=== PATIENT | male | born 1935 | race African-American/Black ===

== ENCOUNTER 2019-08-05 01:39 | Inpatient (IN) ==
[2019-08-05] MEDS ORDERED: FUROSEMIDE 100 MG/10 ML VIAL IV STA (02:06)
[2019-08-05] MEDS ORDERED: ALBUTEROL/IPRATROPIUM 3 ML NEB RESP TX STA (02:06)
[2019-08-05 02:35] LABS: Basophils # 0.1 10*3/uL (0.0-0.2); Basophils % 1.1 % (0.0-0.8); Eosinophils # 0.2 10*3/uL (0.0-0.87); Eosinophils % 2.2 % (0.00-10.9); Hematocrit 36.4 VOL% (42.0-52.0); Hemoglobin 11.9 GM/DL (14.0-18.0); Immature Granulocytes % 0.1 %; Immature Granulocytes Absolute 0.01 #; Lymphocytes # 1.6 10*3/uL (1.4-4.0); Lymphocytes % 21.3 % (21.2-54.2); Mean Corpuscular HGB Conc 32.7 GM/DL (32-36); Mean Corpuscular Volume 94.1 FL (87-102); Mean Platelet Volume 10.6 FL (9.6-12.0); Neutrophils % 68.3 % (38.7-73.9); Platelet Count 232 T/CUMM (130-400); Red Blood Count 3.87 MC/CUMM (3.8-5.5); Red Cell Distribution Width 13.2 % (9.3-17.3); White Blood Count 7.4 T/CUMM (4-12)
[2019-08-05 02:45] LABS: INR 1.1; PT Patient Result 11.6 SECS (9.6-12.2); Partial Thromboplastin Time 33.1 SECS (20.8-36.0)
[2019-08-05 03:02] LABS: Albumin 3.3 G/DL (3.4-5.0); Bilirubin,Total 0.5 MG/DL (0.2-1.0); Calcium 8.8 MG/DL (8.5-10.1); Osmolality,Calculated 295.8 MOS/KG (273-304); Total Protein 7.2 G/DL (6.4-8.3)
[2019-08-05] MEDS ORDERED: ONDANSETRON 4 MG/2 ML VIAL IV PRN (03:33)
[2019-08-05] MEDS ORDERED: hydrALAZINE 20 MG/1 ML VIAL ONE (03:55)
[2019-08-05] MEDS ORDERED: hydrALAZINE 20 MG/1 ML VIAL IV STA (04:02)
[2019-08-05 06:01] LABS: Basophils # 0.1 10*3/uL (0.0-0.2); Basophils % 1.1 % (0.0-0.8); Eosinophils # 0.1 10*3/uL (0.0-0.87); Eosinophils % 1.3 % (0.00-10.9); Hematocrit 38.2 VOL% (42.0-52.0); Hemoglobin 12.5 GM/DL (14.0-18.0); Immature Granulocytes % 0.3 %; Immature Granulocytes Absolute 0.02 #; Lymphocytes # 1.7 10*3/uL (1.4-4.0); Lymphocytes % 22.5 % (21.2-54.2); Mean Corpuscular HGB Conc 32.7 GM/DL (32-36); Mean Corpuscular Volume 92.5 FL (87-102); Mean Platelet Volume 10.8 FL (9.6-12.0); Monocytes % 7.9 % (1.7-12.7); Neutrophils % 66.9 % (38.7-73.9); Platelet Count 243 T/CUMM (130-400); Red Blood Count 4.13 MC/CUMM (3.8-5.5); Red Cell Distribution Width 13.2 % (9.3-17.3); White Blood Count 7.5 T/CUMM (4-12)
[2019-08-05] MEDS ORDERED: hydrALAZINE 20 MG/1 ML VIAL IV ONE (06:06)
[2019-08-05 06:32] LABS: Albumin 3.2 G/DL (3.4-5.0); Bilirubin,Total 0.8 MG/DL (0.2-1.0); Calcium 9.6 MG/DL (8.5-10.1); Osmolality,Calculated 290.3 MOS/KG (273-304); Total Protein 7.8 G/DL (6.4-8.3)
[2019-08-05] MEDS ORDERED: NITROGLYCERIN SL 0.4 MG TABLET SL PRN (08:58)
[2019-08-05] MEDS ORDERED: ALBUTEROL 2.5 MG/3 ML NEB RESP TX PRN (08:58)
[2019-08-05] MEDS ORDERED: hydrALAZINE 25 MG TABLET PO SCH (09:00)
[2019-08-05] MEDS: PARoxetine 20 MG TABLET PO SCH (09:38)
[2019-08-05] MEDS: ISOSORBIDE MONONITRATE 30 MG TABLET PO SCH (09:38)
[2019-08-05] MEDS: FUROSEMIDE 40 MG/4 ML VIAL IV SCH ×2 (09:39→16:33)
[2019-08-05] MEDS: TAMSULOSIN 0.4 MG CAPSULE PO SCH (09:39)
[2019-08-05] MEDS: APIXABAN 2.5 MG TABLET PO SCH ×2 (09:39→21:14)
[2019-08-05] MEDS: carvediloL 25 MG TABLET PO SCH ×2 (09:39→21:14)
[2019-08-05] MEDS: POTASSIUM CHLORIDE 10 MEQ TABLET PO SCH (09:39)
[2019-08-05] MEDS: DOCUSATE SODIUM 100 MG CAPSULE PO SCH ×2 (09:39→21:15)
[2019-08-05] MEDS: ALLOPURINOL 100 MG TABLET PO SCH (09:39)
[2019-08-05] MEDS: PANTOPRAZOLE 40 MG VIAL IV SCH (09:39)
[2019-08-05] MEDS: ASPIRIN EC 81 MG TABLET PO SCH (09:40)
[2019-08-05] MEDS: DORZOLAMIDE/TIMOLOL OPH SOLN 10 ML BOTTLE LEFT EYE SCH ×2 (09:40→21:15)
[2019-08-05] MEDS: ALBUTEROL/IPRATROPIUM 3 ML NEB RESP TX SCH ×2 (13:16→19:43)
[2019-08-05] MEDS: DONEPEZIL 10 MG TABLET PO SCH (21:14)
[2019-08-05] MEDS: hydrALAZINE 25 MG TABLET PO SCH (21:15)
[2019-08-06] MEDS: ALBUTEROL/IPRATROPIUM 3 ML NEB RESP TX SCH ×4 (00:20→19:51)
[2019-08-06 07:17] LABS: Calcium 8.5 MG/DL (8.5-10.1); Osmolality,Calculated 295.8 MOS/KG (273-304)
[2019-08-06] MEDS: carvediloL 25 MG TABLET PO SCH ×2 (07:59→21:40)
[2019-08-06] MEDS: TAMSULOSIN 0.4 MG CAPSULE PO SCH (07:59)
[2019-08-06] MEDS: hydrALAZINE 25 MG TABLET PO SCH (07:59)
[2019-08-06] MEDS: DOCUSATE SODIUM 100 MG CAPSULE PO SCH ×2 (08:00→21:40)
[2019-08-06] MEDS: PARoxetine 20 MG TABLET PO SCH (08:00)
[2019-08-06] MEDS: ASPIRIN EC 81 MG TABLET PO SCH (08:01)
[2019-08-06] MEDS: POTASSIUM CHLORIDE 10 MEQ TABLET PO SCH (08:01)
[2019-08-06] MEDS: ALLOPURINOL 100 MG TABLET PO SCH (08:02)
[2019-08-06] MEDS: ISOSORBIDE MONONITRATE 30 MG TABLET PO SCH (08:02)
[2019-08-06] MEDS: APIXABAN 2.5 MG TABLET PO SCH ×2 (08:02→21:40)
[2019-08-06] MEDS: FUROSEMIDE 40 MG/4 ML VIAL IV SCH ×2 (08:03→16:15)
[2019-08-06] MEDS: PANTOPRAZOLE 40 MG VIAL IV SCH (08:03)
[2019-08-06] MEDS: DORZOLAMIDE/TIMOLOL OPH SOLN 10 ML BOTTLE LEFT EYE SCH ×2 (08:03→21:43)
[2019-08-06] MEDS ORDERED: POTASSIUM CHLORIDE 20 MEQ TABLET PO ONE (08:12)
[2019-08-06 16:39] LABS: Amorphous Crystals,Urine Occasional /HPF (Few); Apearance,Urine CLEAR (Clear); Bacteria,Urine Occasional /HPF (Few); Bilirubin,Urine Negative (Negative); Blood, Urine Negative (Negative); Glucose,Urine (UA) Negative (Negative); Hyaline Casts,Urine 3 /LPF (0-3); Ketones,Urine Negative (Negative); Mucus,Urine Occasional /LPF (Occasional); Nitrite,Urine Negative (Negative); Protein,Urine 100 MG/DL; RBC,Urine 1 /HPF (0-4); Squamous Epithelial Cell,Urine Occasional /HPF (0-10); Urine Color Yellow (Yellow); Urine Specific Gravity 1.012 (1.001-1.035); Urine Urobilinogen < 2.0 EU/DL (0.2-1.0); WBC,Urine 2 /HPF (0-6)
[2019-08-06] MEDS: POTASSIUM CHLORIDE 20 MEQ TABLET PO SCH (21:39)
[2019-08-06] MEDS: DONEPEZIL 10 MG TABLET PO SCH (21:39)
[2019-08-07] MEDS: ALBUTEROL/IPRATROPIUM 3 ML NEB RESP TX SCH ×4 (00:37→20:30)
[2019-08-07 05:39] LABS: Basophils # 0.1 10*3/uL (0.0-0.2); Basophils % 1.3 % (0.0-0.8); Eosinophils # 0.2 10*3/uL (0.0-0.87); Eosinophils % 4.3 % (0.00-10.9); Hematocrit 32.6 VOL% (42.0-52.0); Hemoglobin 10.6 GM/DL (14.0-18.0); Immature Granulocytes % 0.4 %; Immature Granulocytes Absolute 0.02 #; Lymphocytes # 1.6 10*3/uL (1.4-4.0); Lymphocytes % 33.3 % (21.2-54.2); Mean Corpuscular HGB Conc 32.5 GM/DL (32-36); Mean Corpuscular Volume 93.4 FL (87-102); Mean Platelet Volume 11.4 FL (9.6-12.0); Monocytes % 11.6 % (1.7-12.7); Neutrophils % 49.1 % (38.7-73.9); Platelet Count 198 T/CUMM (130-400); Red Blood Count 3.49 MC/CUMM (3.8-5.5); Red Cell Distribution Width 13.3 % (9.3-17.3); White Blood Count 4.7 T/CUMM (4-12)
[2019-08-07 06:04] LABS: Calcium 8.8 MG/DL (8.5-10.1); Osmolality,Calculated 297.8 MOS/KG (273-304)
[2019-08-07] MEDS: ASPIRIN EC 81 MG TABLET PO SCH (09:18)
[2019-08-07] MEDS: FUROSEMIDE 40 MG/4 ML VIAL IV SCH ×2 (09:18→15:32)
[2019-08-07] MEDS: APIXABAN 2.5 MG TABLET PO SCH ×2 (09:19→21:18)
[2019-08-07] MEDS: POTASSIUM CHLORIDE 20 MEQ TABLET PO SCH ×2 (09:19→21:18)
[2019-08-07] MEDS: DOCUSATE SODIUM 100 MG CAPSULE PO SCH ×2 (09:19→21:18)
[2019-08-07] MEDS: ALLOPURINOL 100 MG TABLET PO SCH (09:19)
[2019-08-07] MEDS: PARoxetine 20 MG TABLET PO SCH (09:19)
[2019-08-07] MEDS: PANTOPRAZOLE 40 MG TABLET PO SCH (09:19)
[2019-08-07] MEDS: DORZOLAMIDE/TIMOLOL OPH SOLN 10 ML BOTTLE LEFT EYE SCH ×2 (09:19→21:19)
[2019-08-07] MEDS: ISOSORBIDE MONONITRATE 30 MG TABLET PO SCH (09:19)
[2019-08-07] MEDS: carvediloL 25 MG TABLET PO SCH ×2 (09:19→21:18)
[2019-08-07] MEDS: TAMSULOSIN 0.4 MG CAPSULE PO SCH (09:19)
[2019-08-07] MEDS: DONEPEZIL 10 MG TABLET PO SCH (21:17)
[2019-08-08] MEDS: ALBUTEROL/IPRATROPIUM 3 ML NEB RESP TX SCH ×4 (01:14→19:52)
[2019-08-08 05:07] LABS: Basophils # 0.1 10*3/uL (0.0-0.2); Basophils % 1.1 % (0.0-0.8); Eosinophils # 0.2 10*3/uL (0.0-0.87); Eosinophils % 3.6 % (0.00-10.9); Hematocrit 32.1 VOL% (42.0-52.0); Hemoglobin 10.5 GM/DL (14.0-18.0); Immature Granulocytes % 0.5 %; Immature Granulocytes Absolute 0.02 #; Lymphocytes # 1.5 10*3/uL (1.4-4.0); Lymphocytes % 32.7 % (21.2-54.2); Mean Corpuscular HGB Conc 32.7 GM/DL (32-36); Mean Corpuscular Volume 93.9 FL (87-102); Mean Platelet Volume 11.7 FL (9.6-12.0); Monocytes % 10.4 % (1.7-12.7); Neutrophils % 51.7 % (38.7-73.9); Platelet Count 206 T/CUMM (130-400); Red Blood Count 3.42 MC/CUMM (3.8-5.5); Red Cell Distribution Width 13.4 % (9.3-17.3); White Blood Count 4.4 T/CUMM (4-12)
[2019-08-08 05:25] LABS: Calcium 8.7 MG/DL (8.5-10.1); Osmolality,Calculated 299.8 MOS/KG (273-304)
[2019-08-08] MEDS: PANTOPRAZOLE 40 MG TABLET PO SCH (09:28)
[2019-08-08] MEDS: DORZOLAMIDE/TIMOLOL OPH SOLN 10 ML BOTTLE LEFT EYE SCH ×2 (09:28→20:46)
[2019-08-08] MEDS: PARoxetine 20 MG TABLET PO SCH (09:28)
[2019-08-08] MEDS: APIXABAN 2.5 MG TABLET PO SCH ×2 (09:28→20:45)
[2019-08-08] MEDS: carvediloL 25 MG TABLET PO SCH ×2 (09:29→20:57)
[2019-08-08] MEDS: ALLOPURINOL 100 MG TABLET PO SCH (09:29)
[2019-08-08] MEDS: DOCUSATE SODIUM 100 MG CAPSULE PO SCH ×2 (09:29→20:45)
[2019-08-08] MEDS: ASPIRIN EC 81 MG TABLET PO SCH (09:30)
[2019-08-08] MEDS: POTASSIUM CHLORIDE 20 MEQ TABLET PO SCH ×2 (09:30→20:45)
[2019-08-08] MEDS: ISOSORBIDE MONONITRATE 30 MG TABLET PO SCH (09:30)
[2019-08-08] MEDS: TAMSULOSIN 0.4 MG CAPSULE PO SCH (09:30)
[2019-08-08] MEDS: FUROSEMIDE 40 MG/4 ML VIAL IV SCH (10:52)
[2019-08-08] MEDS: FUROSEMIDE 40 MG TABLET PO SCH (15:58)
[2019-08-08] MEDS: DONEPEZIL 10 MG TABLET PO SCH (20:45)
[2019-08-09] MEDS: ALBUTEROL/IPRATROPIUM 3 ML NEB RESP TX SCH ×3 (01:10→13:25)
[2019-08-09 06:17] LABS: Osmolality,Calculated 293.4 MOS/KG (273-304)
[2019-08-09] MEDS: APIXABAN 2.5 MG TABLET PO SCH (09:05)
[2019-08-09] MEDS: TAMSULOSIN 0.4 MG CAPSULE PO SCH (09:05)
[2019-08-09] MEDS: ALLOPURINOL 100 MG TABLET PO SCH (09:05)
[2019-08-09] MEDS: ASPIRIN EC 81 MG TABLET PO SCH (09:05)
[2019-08-09] MEDS: PANTOPRAZOLE 40 MG TABLET PO SCH (09:06)
[2019-08-09] MEDS: PARoxetine 20 MG TABLET PO SCH (09:06)
[2019-08-09] MEDS: FUROSEMIDE 40 MG TABLET PO SCH ×2 (09:06→15:17)
[2019-08-09] MEDS: DOCUSATE SODIUM 100 MG CAPSULE PO SCH (09:06)
[2019-08-09] MEDS: ISOSORBIDE MONONITRATE 30 MG TABLET PO SCH (09:06)
[2019-08-09] MEDS: POTASSIUM CHLORIDE 20 MEQ TABLET PO SCH (09:07)
[2019-08-09] MEDS: carvediloL 25 MG TABLET PO SCH (09:07)
[2019-08-09] MEDS: DORZOLAMIDE/TIMOLOL OPH SOLN 10 ML BOTTLE LEFT EYE SCH (09:07)
[2019-08-09 15:33] VITALS: BP 122/70
== END 2019-08-09 18:31 | disposition home health service (06) | DRG 291 ==
LOC: EDBD → EDUNIT# → N.EDINP 01:39 → N.ED 01:39 → INTOOBSV 04:23 → OBSVTOIN 04:23 → N.EDINP 04:55 → N.TELEN 05:03
PROVIDERS: ADMIT Internal Medicine; ATTEND Internal Medicine

== ENCOUNTER 2020-05-16 03:46 | Inpatient (IN) ==
[2020-05-16 04:22] LABS: ABG Base Excess -1.1 MMOL/L (-2.5-2.5); ABG HCO3 22.6 MMOL/L (20-26); ABG Oxygen Saturation 93.9 % (95-100); ABG PCO2 34.2 MM HG (35-48); ABG PH 7.437 (7.35-7.45); ABG PO2 70.8 MM HG (80-95); ABG TCO2 23.6 MMOL/L (23-27); Allen Test Positive
[2020-05-16 04:26] LABS: Basophils # 0.1 10*3/uL (0.0-0.2); Basophils % 0.7 % (0.0-0.8); Eosinophils # 0.2 10*3/uL (0.0-0.87); Eosinophils % 2.6 % (0.00-10.9); Hemoglobin 11.3 GM/DL (14.0-18.0); Immature Granulocytes % 0.2 %; Immature Granulocytes Absolute 0.02 #; Lymphocytes % 11.6 % (21.2-54.2); Mean Corpuscular HGB Conc 32.3 GM/DL (32-36); Mean Corpuscular Volume 95.4 FL (87-102); Mean Platelet Volume 10.5 FL (9.6-12.0); Monocytes % 6.5 % (1.7-12.7); Neutrophils % 78.4 % (38.7-73.9); Platelet Count 223 T/CUMM (130-400); Red Blood Count 3.67 MC/CUMM (3.8-5.5); Red Cell Distribution Width 14.4 % (9.3-17.3); White Blood Count 8.8 T/CUMM (4-12)
[2020-05-16 04:47] LABS: Albumin 3.4 G/DL (3.4-5.0); Bilirubin,Total 0.6 MG/DL (0.2-1.0); Calcium 9.7 MG/DL (8.5-10.1); Osmolality,Calculated 291.1 MOS/KG (273-304); Total Protein 7.9 G/DL (6.4-8.3)
[2020-05-16] MEDS ORDERED: LEVOFLOXACIN INJ 500 MG in PREMIX 1 EACH IV STA (04:56)
[2020-05-16] MEDS ORDERED: hydrALAZINE 20 MG/1 ML VIAL IV STA ×2 (05:00→05:54)
[2020-05-16] MEDS ORDERED: ACETAMINOPHEN 325 MG TABLET PO PRN (05:12)
[2020-05-16] MEDS ORDERED: ONDANSETRON 4 MG/2 ML VIAL IV PRN (05:12)
[2020-05-16] MEDS ORDERED: DEXTROSE 50% 25 GM/50 ML VIAL IV PRN (07:29)
[2020-05-16] MEDS ORDERED: GLUCAGON 1 MG VIAL IM PRN (07:29)
[2020-05-16] MEDS ORDERED: cloNIDine 0.1 MG TABLET ONE (07:34)
[2020-05-16] MEDS ORDERED: INFLUENZA VIRUS VACCINE 0.5 ML SYRINGE IM ONE (09:02)
[2020-05-16] MEDS: INSULIN REGULAR 100 UNIT/ML SUBCUT SCH ×4 (10:46→21:22)
[2020-05-16] MEDS: PANTOPRAZOLE 40 MG TABLET PO SCH (10:57)
[2020-05-16] MEDS: FUROSEMIDE 40 MG/4 ML VIAL IV SCH ×2 (10:58→21:22)
[2020-05-16] MEDS ORDERED: NITROGLYCERIN SL 0.4 MG TABLET SL PRN (15:16)
[2020-05-16] MEDS: ISOSORBIDE MONONITRATE 30 MG TABLET PO SCH (16:55)
[2020-05-16] MEDS: TAMSULOSIN 0.4 MG CAPSULE PO SCH (16:55)
[2020-05-16] MEDS: carvediloL 25 MG TABLET PO SCH (21:22)
[2020-05-16] MEDS: APIXABAN 2.5 MG TABLET PO SCH (21:22)
[2020-05-16] MEDS: POTASSIUM CHLORIDE 20 MEQ TABLET PO SCH (21:22)
[2020-05-17 04:11] LABS: Basophils # 0.1 10*3/uL (0.0-0.2); Eosinophils # 0.2 10*3/uL (0.0-0.87); Eosinophils % 3.7 % (0.00-10.9); Hematocrit 29.7 VOL% (42.0-52.0); Hemoglobin 9.8 GM/DL (14.0-18.0); Immature Granulocytes % 0.2 %; Immature Granulocytes Absolute 0.01 #; Lymphocytes # 1.1 10*3/uL (1.4-4.0); Lymphocytes % 22.8 % (21.2-54.2); Mean Corpuscular Volume 93.7 FL (87-102); Mean Platelet Volume 10.7 FL (9.6-12.0); Monocytes % 9.7 % (1.7-12.7); Neutrophils % 62.6 % (38.7-73.9); Platelet Count 203 T/CUMM (130-400); Red Blood Count 3.17 MC/CUMM (3.8-5.5); Red Cell Distribution Width 14.5 % (9.3-17.3); White Blood Count 4.9 T/CUMM (4-12)
[2020-05-17 04:35] LABS: Calcium 8.9 MG/DL (8.5-10.1)
[2020-05-17] MEDS: LEVOFLOXACIN INJ 250 MG in PREMIX 1 EACH IV SCH (05:49)
[2020-05-17] MEDS: PARoxetine 20 MG TABLET PO SCH (10:44)
[2020-05-17] MEDS: POTASSIUM CHLORIDE 20 MEQ TABLET PO SCH ×2 (10:45→21:02)
[2020-05-17] MEDS: ISOSORBIDE MONONITRATE 30 MG TABLET PO SCH (10:45)
[2020-05-17] MEDS: TAMSULOSIN 0.4 MG CAPSULE PO SCH (10:46)
[2020-05-17] MEDS: FERROUS SULFATE 325 MG TABLET PO SCH (10:46)
[2020-05-17] MEDS: PANTOPRAZOLE 40 MG TABLET PO SCH (10:46)
[2020-05-17] MEDS: ASPIRIN EC 81 MG TABLET PO SCH (10:47)
[2020-05-17] MEDS: APIXABAN 2.5 MG TABLET PO SCH ×2 (10:47→21:03)
[2020-05-17] MEDS: allopurinoL 100 MG TABLET PO SCH (10:47)
[2020-05-17] MEDS: carvediloL 25 MG TABLET PO SCH ×2 (10:48→21:03)
[2020-05-17] MEDS: FUROSEMIDE 40 MG/4 ML VIAL IV SCH ×2 (10:48→21:03)
[2020-05-17] MEDS: INSULIN REGULAR 100 UNIT/ML SUBCUT SCH ×4 (10:53→21:03)
[2020-05-18 05:55] LABS: Basophils # 0.1 10*3/uL (0.0-0.2); Basophils % 1.8 % (0.0-0.8); Eosinophils # 0.2 10*3/uL (0.0-0.87); Eosinophils % 4.9 % (0.00-10.9); Hematocrit 31.5 VOL% (42.0-52.0); Hemoglobin 10.1 GM/DL (14.0-18.0); Immature Granulocytes % 0.2 %; Immature Granulocytes Absolute 0.01 #; Lymphocytes # 1.3 10*3/uL (1.4-4.0); Mean Corpuscular HGB Conc 32.1 GM/DL (32-36); Mean Corpuscular Volume 95.2 FL (87-102); Mean Platelet Volume 10.9 FL (9.6-12.0); Neutrophils % 57.1 % (38.7-73.9); Platelet Count 216 T/CUMM (130-400); Red Blood Count 3.31 MC/CUMM (3.8-5.5); Red Cell Distribution Width 14.3 % (9.3-17.3); White Blood Count 4.9 T/CUMM (4-12)
[2020-05-18 06:22] LABS: Calcium 9.7 MG/DL (8.5-10.1); Osmolality,Calculated 289.4 MOS/KG (273-304)
[2020-05-18] MEDS: LEVOFLOXACIN INJ 250 MG in PREMIX 1 EACH IV SCH (06:38)
[2020-05-18] MEDS: INSULIN REGULAR 100 UNIT/ML SUBCUT SCH ×4 (09:11→21:32)
[2020-05-18] MEDS: PANTOPRAZOLE 40 MG TABLET PO SCH (09:14)
[2020-05-18] MEDS: allopurinoL 100 MG TABLET PO SCH (09:15)
[2020-05-18] MEDS: carvediloL 25 MG TABLET PO SCH ×2 (09:15→21:30)
[2020-05-18] MEDS: ISOSORBIDE MONONITRATE 30 MG TABLET PO SCH (09:15)
[2020-05-18] MEDS: PARoxetine 20 MG TABLET PO SCH (09:15)
[2020-05-18] MEDS: POTASSIUM CHLORIDE 20 MEQ TABLET PO SCH ×2 (09:15→21:31)
[2020-05-18] MEDS: APIXABAN 2.5 MG TABLET PO SCH ×2 (09:15→21:30)
[2020-05-18] MEDS: TAMSULOSIN 0.4 MG CAPSULE PO SCH (09:15)
[2020-05-18] MEDS: FERROUS SULFATE 325 MG TABLET PO SCH (09:15)
[2020-05-18] MEDS: ASPIRIN EC 81 MG TABLET PO SCH (09:15)
[2020-05-18] MEDS: FUROSEMIDE 40 MG/4 ML VIAL IV SCH ×2 (09:20→21:31)
[2020-05-19] MEDS: LEVOFLOXACIN INJ 250 MG in PREMIX 1 EACH IV SCH (05:57)
[2020-05-19] MEDS: INSULIN REGULAR 100 UNIT/ML SUBCUT SCH ×2 (07:52→12:30)
[2020-05-19] MEDS ORDERED: MULTIVITAMIN (BEROCCA) TABLET PO SCH (09:00)
[2020-05-19] MEDS: FUROSEMIDE 40 MG/4 ML VIAL IV SCH (09:41)
[2020-05-19] MEDS: POTASSIUM CHLORIDE 20 MEQ TABLET PO SCH (09:42)
[2020-05-19] MEDS: ASPIRIN EC 81 MG TABLET PO SCH (09:42)
[2020-05-19] MEDS: carvediloL 25 MG TABLET PO SCH (09:42)
[2020-05-19] MEDS: TAMSULOSIN 0.4 MG CAPSULE PO SCH (09:42)
[2020-05-19] MEDS: PARoxetine 20 MG TABLET PO SCH (09:43)
[2020-05-19] MEDS: PANTOPRAZOLE 40 MG TABLET PO SCH (09:44)
[2020-05-19] MEDS: FERROUS SULFATE 325 MG TABLET PO SCH (09:45)
[2020-05-19] MEDS: APIXABAN 2.5 MG TABLET PO SCH (09:45)
[2020-05-19] MEDS: allopurinoL 100 MG TABLET PO SCH (09:45)
[2020-05-19] MEDS: ISOSORBIDE MONONITRATE 30 MG TABLET PO SCH (09:48)
[2020-05-19 13:02] VITALS: BP 134/76
[2020-05-19] MEDS ORDERED: FUROSEMIDE 40 MG TABLET PO SCH (16:00)
== END 2020-05-19 15:40 | disposition home health service (06) | DRG 291 ==
LOC: EDUNIT# → EDBD → N.ED 03:46 → N.EDINP 05:10 → N.TELES 06:38 → N.4E 05-18 16:30
PROVIDERS: ADMIT Internal Medicine; ATTEND Internal Medicine

== ENCOUNTER 2020-08-29 09:28 | Inpatient (IN) ==
[2020-08-29] MEDS ORDERED: hydrALAZINE 20 MG/1 ML VIAL IV STA (09:50)
[2020-08-29 10:08] LABS: Basophils # 0.1 10*3/uL (0.0-0.2); Basophils % 0.8 % (0.0-0.8); Eosinophils # 0.1 10*3/uL (0.0-0.87); Eosinophils % 0.9 % (0.00-10.9); Hematocrit 38.5 VOL% (42.0-52.0); Hemoglobin 12.4 GM/DL (14.0-18.0); Immature Granulocytes % 0.3 %; Immature Granulocytes Absolute 0.02 #; Lymphocytes # 0.8 10*3/uL (1.4-4.0); Lymphocytes % 13.1 % (21.2-54.2); Mean Corpuscular HGB Conc 32.2 GM/DL (32-36); Mean Corpuscular Volume 93.7 FL (87-102); Mean Platelet Volume 10.7 FL (9.6-12.0); Monocytes % 6.4 % (1.7-12.7); Neutrophils % 78.5 % (38.7-73.9); Platelet Count 198 T/CUMM (130-400); Red Blood Count 4.11 MC/CUMM (3.8-5.5); Red Cell Distribution Width 13.7 % (9.3-17.3); White Blood Count 6.4 T/CUMM (4-12)
[2020-08-29] MEDS ORDERED: FUROSEMIDE 100 MG/10 ML VIAL IV STA (10:23)
[2020-08-29 10:35] LABS: Albumin 3.6 G/DL (3.4-5.0); Bilirubin,Total 0.4 MG/DL (0.2-1.0); Calcium 9.5 MG/DL (8.5-10.1); Osmolality,Calculated 295.8 MOS/KG (273-304)
[2020-08-29] MEDS ORDERED: ACETAMINOPHEN 325 MG TABLET PO PRN (11:01)
[2020-08-29] MEDS ORDERED: ONDANSETRON 4 MG/2 ML VIAL IV PRN (11:01)
[2020-08-29] MEDS ORDERED: ALBUTEROL 2.5 MG/3 ML NEB RESP TX PRN (11:03)
[2020-08-29] MEDS: FUROSEMIDE 40 MG TABLET PO SCH (15:47)
[2020-08-29] MEDS: carvediloL 25 MG TABLET PO SCH (20:30)
[2020-08-29] MEDS: DOCUSATE SODIUM 100 MG CAPSULE PO SCH (20:30)
[2020-08-29] MEDS: APIXABAN 2.5 MG TABLET PO SCH (20:30)
[2020-08-30 06:40] LABS: Basophils # 0.1 10*3/uL (0.0-0.2); Basophils % 1.1 % (0.0-0.8); Eosinophils # 0.1 10*3/uL (0.0-0.87); Eosinophils % 2.7 % (0.00-10.9); Hematocrit 32.4 VOL% (42.0-52.0); Hemoglobin 10.5 GM/DL (14.0-18.0); Immature Granulocytes % 0.2 %; Immature Granulocytes Absolute 0.01 #; Lymphocytes # 1.2 10*3/uL (1.4-4.0); Lymphocytes % 27.6 % (21.2-54.2); Mean Corpuscular HGB Conc 32.4 GM/DL (32-36); Mean Corpuscular Volume 93.6 FL (87-102); Mean Platelet Volume 10.9 FL (9.6-12.0); Monocytes % 11.2 % (1.7-12.7); Neutrophils % 57.2 % (38.7-73.9); Platelet Count 205 T/CUMM (130-400); Red Blood Count 3.46 MC/CUMM (3.8-5.5); Red Cell Distribution Width 13.8 % (9.3-17.3); White Blood Count 4.4 T/CUMM (4-12)
[2020-08-30 07:23] LABS: Albumin 2.9 G/DL (3.4-5.0); Bilirubin,Total 0.8 MG/DL (0.2-1.0); Calcium 9.4 MG/DL (8.5-10.1); Osmolality,Calculated 294.8 MOS/KG (273-304); Potassium 4.2 MMOL/L (3.5-5.1); Total Protein 6.9 G/DL (6.4-8.3)
[2020-08-30] MEDS: DOCUSATE SODIUM 100 MG CAPSULE PO SCH ×2 (09:43→20:38)
[2020-08-30] MEDS: TAMSULOSIN 0.4 MG CAPSULE PO SCH (09:43)
[2020-08-30] MEDS: PANTOPRAZOLE 40 MG TABLET PO SCH (09:44)
[2020-08-30] MEDS: carvediloL 25 MG TABLET PO SCH ×2 (09:44→20:38)
[2020-08-30] MEDS: allopurinoL 100 MG TABLET PO SCH (09:44)
[2020-08-30] MEDS: PARoxetine 10 MG TABLET PO SCH (09:44)
[2020-08-30] MEDS: FUROSEMIDE 40 MG TABLET PO SCH ×2 (09:44→15:17)
[2020-08-30] MEDS: ASPIRIN EC 81 MG TABLET PO SCH (09:44)
[2020-08-30] MEDS: APIXABAN 2.5 MG TABLET PO SCH ×2 (09:44→20:38)
[2020-08-30] MEDS: SIMVASTATIN 20 MG TABLET PO SCH (09:44)
[2020-08-31 06:33] LABS: Calcium 9.4 MG/DL (8.5-10.1); Osmolality,Calculated 289.3 MOS/KG (273-304); Potassium 4.1 MMOL/L (3.5-5.1)
[2020-08-31] MEDS: DOCUSATE SODIUM 100 MG CAPSULE PO SCH ×2 (08:32→21:49)
[2020-08-31] MEDS: allopurinoL 100 MG TABLET PO SCH (08:32)
[2020-08-31] MEDS: PANTOPRAZOLE 40 MG TABLET PO SCH (08:32)
[2020-08-31] MEDS: TAMSULOSIN 0.4 MG CAPSULE PO SCH (08:32)
[2020-08-31] MEDS: ASPIRIN EC 81 MG TABLET PO SCH (08:33)
[2020-08-31] MEDS: PARoxetine 10 MG TABLET PO SCH (08:33)
[2020-08-31] MEDS: FUROSEMIDE 40 MG TABLET PO SCH ×2 (08:33→16:34)
[2020-08-31] MEDS: carvediloL 25 MG TABLET PO SCH ×2 (08:33→21:49)
[2020-08-31] MEDS: SIMVASTATIN 20 MG TABLET PO SCH (08:33)
[2020-08-31] MEDS: APIXABAN 2.5 MG TABLET PO SCH ×2 (08:33→21:49)
[2020-09-01 05:01] LABS: Calcium 9.1 MG/DL (8.5-10.1); Osmolality,Calculated 291.3 MOS/KG (273-304); Potassium 3.7 MMOL/L (3.5-5.1)
[2020-09-01] MEDS: PARoxetine 10 MG TABLET PO SCH (08:31)
[2020-09-01] MEDS: SIMVASTATIN 20 MG TABLET PO SCH (08:31)
[2020-09-01] MEDS: allopurinoL 100 MG TABLET PO SCH (08:31)
[2020-09-01] MEDS: TAMSULOSIN 0.4 MG CAPSULE PO SCH (08:31)
[2020-09-01] MEDS: ASPIRIN EC 81 MG TABLET PO SCH (08:31)
[2020-09-01] MEDS: PANTOPRAZOLE 40 MG TABLET PO SCH (08:31)
[2020-09-01] MEDS: APIXABAN 2.5 MG TABLET PO SCH ×2 (08:32→20:46)
[2020-09-01] MEDS: FUROSEMIDE 40 MG TABLET PO SCH ×2 (08:32→15:06)
[2020-09-01] MEDS: DOCUSATE SODIUM 100 MG CAPSULE PO SCH ×2 (08:32→20:46)
[2020-09-01] MEDS: carvediloL 25 MG TABLET PO SCH ×2 (08:32→20:46)
[2020-09-01] MEDS ORDERED: TUBERCULIN SKIN TEST 0.1 ML SYRINGE INTRADERM ONE (13:00)
[2020-09-02 06:00] LABS: Basophils # 0.1 10*3/uL (0.0-0.2); Basophils % 1.6 % (0.0-0.8); Eosinophils # 0.1 10*3/uL (0.0-0.87); Eosinophils % 3.2 % (0.00-10.9); Hematocrit 34.6 VOL% (42.0-52.0); Hemoglobin 10.8 GM/DL (14.0-18.0); Immature Granulocytes % 0.3 %; Immature Granulocytes Absolute 0.01 #; Lymphocytes # 1.2 10*3/uL (1.4-4.0); Lymphocytes % 31.1 % (21.2-54.2); Mean Corpuscular HGB Conc 31.2 GM/DL (32-36); Mean Corpuscular Volume 96.9 FL (87-102); Mean Platelet Volume 10.8 FL (9.6-12.0); Neutrophils % 50.8 % (38.7-73.9); Platelet Count 207 T/CUMM (130-400); Red Blood Count 3.57 MC/CUMM (3.8-5.5); Red Cell Distribution Width 13.4 % (9.3-17.3); White Blood Count 3.8 T/CUMM (4-12)
[2020-09-02 06:09] LABS: Calcium 9.2 MG/DL (8.5-10.1); Osmolality,Calculated 298.8 MOS/KG (273-304); Potassium 3.6 MMOL/L (3.5-5.1)
[2020-09-02] MEDS: SIMVASTATIN 20 MG TABLET PO SCH (08:04)
[2020-09-02] MEDS: DOCUSATE SODIUM 100 MG CAPSULE PO SCH ×2 (08:04→20:05)
[2020-09-02] MEDS: allopurinoL 100 MG TABLET PO SCH (08:04)
[2020-09-02] MEDS: ASPIRIN EC 81 MG TABLET PO SCH (08:04)
[2020-09-02] MEDS: carvediloL 25 MG TABLET PO SCH ×2 (08:04→20:05)
[2020-09-02] MEDS: TAMSULOSIN 0.4 MG CAPSULE PO SCH (08:04)
[2020-09-02] MEDS: PANTOPRAZOLE 40 MG TABLET PO SCH (08:05)
[2020-09-02] MEDS: FUROSEMIDE 40 MG TABLET PO SCH ×2 (08:05→15:04)
[2020-09-02] MEDS: PARoxetine 10 MG TABLET PO SCH (08:05)
[2020-09-02] MEDS: APIXABAN 2.5 MG TABLET PO SCH ×2 (08:05→20:05)
[2020-09-03 07:08] LABS: Basophils # 0.1 10*3/uL (0.0-0.2); Eosinophils # 0.1 10*3/uL (0.0-0.87); Eosinophils % 2.5 % (0.00-10.9); Hematocrit 36.6 VOL% (42.0-52.0); Hemoglobin 11.2 GM/DL (14.0-18.0); Immature Granulocytes % 0.6 %; Immature Granulocytes Absolute 0.03 #; Lymphocytes # 1.1 10*3/uL (1.4-4.0); Lymphocytes % 21.3 % (21.2-54.2); Mean Corpuscular HGB Conc 30.6 GM/DL (32-36); Mean Corpuscular Volume 97.6 FL (87-102); Mean Platelet Volume 10.5 FL (9.6-12.0); Monocytes % 11.7 % (1.7-12.7); Neutrophils % 62.9 % (38.7-73.9); Platelet Count 193 T/CUMM (130-400); Red Blood Count 3.75 MC/CUMM (3.8-5.5); Red Cell Distribution Width 13.6 % (9.3-17.3); White Blood Count 5.2 T/CUMM (4-12)
[2020-09-03 07:46] LABS: Calcium 9.3 MG/DL (8.5-10.1); Osmolality,Calculated 295.1 MOS/KG (273-304); Potassium 3.7 MMOL/L (3.5-5.1)
[2020-09-03] MEDS: PANTOPRAZOLE 40 MG TABLET PO SCH (08:31)
[2020-09-03] MEDS: allopurinoL 100 MG TABLET PO SCH (08:31)
[2020-09-03] MEDS: PARoxetine 10 MG TABLET PO SCH (08:31)
[2020-09-03] MEDS: SIMVASTATIN 20 MG TABLET PO SCH (08:31)
[2020-09-03] MEDS: ASPIRIN EC 81 MG TABLET PO SCH (08:31)
[2020-09-03] MEDS: FUROSEMIDE 40 MG TABLET PO SCH ×2 (08:31→16:10)
[2020-09-03] MEDS: APIXABAN 2.5 MG TABLET PO SCH ×2 (08:31→20:21)
[2020-09-03] MEDS: TAMSULOSIN 0.4 MG CAPSULE PO SCH (08:31)
[2020-09-03] MEDS: carvediloL 25 MG TABLET PO SCH ×2 (08:32→20:21)
[2020-09-03] MEDS: DOCUSATE SODIUM 100 MG CAPSULE PO SCH ×2 (08:32→20:21)
[2020-09-04 08:05] VITALS: BP 144/73
[2020-09-04] MEDS: ASPIRIN EC 81 MG TABLET PO SCH (08:42)
[2020-09-04] MEDS: allopurinoL 100 MG TABLET PO SCH (08:42)
[2020-09-04] MEDS: PANTOPRAZOLE 40 MG TABLET PO SCH (08:42)
[2020-09-04] MEDS: carvediloL 25 MG TABLET PO SCH (08:42)
[2020-09-04] MEDS: FUROSEMIDE 40 MG TABLET PO SCH (08:42)
[2020-09-04] MEDS: DOCUSATE SODIUM 100 MG CAPSULE PO SCH (08:42)
[2020-09-04] MEDS: TAMSULOSIN 0.4 MG CAPSULE PO SCH (08:42)
[2020-09-04] MEDS: SIMVASTATIN 20 MG TABLET PO SCH (08:43)
[2020-09-04] MEDS: APIXABAN 2.5 MG TABLET PO SCH (08:43)
[2020-09-04] MEDS: PARoxetine 10 MG TABLET PO SCH (08:43)
== END 2020-09-04 11:33 | DRG 291 ==
LOC: EDBD → EDUNIT# → N.ED 09:28 → N.EDINP 11:01 → N.5E 12:32
PROVIDERS: ADMIT Internal Medicine; ATTEND Internal Medicine

== ENCOUNTER 2021-09-11 19:35 | Inpatient (IN) ==
[2021-09-11 22:42] LABS: Basophils % 0.3 % (0.0-0.8); Eosinophils % 0.3 % (0.00-10.9); Hematocrit 38.1 VOL% (42.0-52.0); Hemoglobin 12.1 GM/DL (14.0-18.0); Immature Granulocytes % 0.3 %; Immature Granulocytes Absolute 0.01 #; Lymphocytes # 1.1 10*3/uL (1.4-4.0); Lymphocytes % 27.2 % (21.2-54.2); Mean Corpuscular HGB Conc 31.8 GM/DL (32-36); Mean Corpuscular Volume 93.2 FL (87-102); Mean Platelet Volume 11.2 FL (9.6-12.0); Monocytes % 11.1 % (1.7-12.7); Neutrophils % 60.8 % (38.7-73.9); Platelet Count 174 T/CUMM (130-400); Red Blood Count 4.09 MC/CUMM (3.8-5.5); Red Cell Distribution Width 14.2 % (9.3-17.3); White Blood Count 3.9 T/CUMM (4-12)
[2021-09-11 22:53] LABS: Barbiturates Screen,Urine Negative (Negative); Benzodiazepines Screen,Urine Negative (Negative); Cannabinoid Screen,Urine Negative (Negative); Opiate Screen,Urine Negative (Negative); Phencyclidine Screen,Urine Negative (Negative)
[2021-09-11 22:55] LABS: Bacteria,Urine Occasional /HPF (Few); Bilirubin,Urine Negative (Negative); Blood, Urine Moderate mg/dL (Negative); Glucose,Urine (UA) Negative (Negative); Hyaline Casts,Urine 1 /LPF (0-3); Ketones,Urine Negative (Negative); Mucus,Urine Occasional /LPF (Occasional); Nitrite,Urine Negative (Negative); Protein,Urine >=500 MG/DL; RBC,Urine 1 /HPF (0-4); Squamous Epithelial Cell,Urine Occasional /HPF (0-10); Urine Appearance Slightly Hazy (Clear); Urine Color Yellow (Yellow); Urine Specific Gravity 1.014 (1.001-1.035); Urine Urobilinogen < 2.0 EU/DL (<2.0)
[2021-09-11 22:57] LABS: INR 1.1; PT Patient Result 11.7 SECS (10.5-12.0)
[2021-09-11 22:59] LABS: Alanine Aminotransferase 14 U/L (16-61); Alkaline Phosphatase 74 U/L (45-117); Aspartate Amino Transferase 30 U/L (0-37); Blood Urea Nitrogen 59 MG/DL (7-18); Calcium 9.6 MG/DL (8.5-10.1); Carbon Dioxide 26 MMOL/L (21-32); Estimated Glom Filtration Rate 21 ML/MIN; Glucose 108 MG/DL (74-106); Osmolality,Calculated 309.4 MOS/KG (273-304); Potassium 3.9 MMOL/L (3.5-5.1); Sodium 147 MMOL/L (136-145); Total Protein 8.5 G/DL (6.4-8.2)
[2021-09-11] MEDS ORDERED: NITROGLYCERIN SL 0.4 MG TABLET SL STA (23:11)
[2021-09-11] MEDS ORDERED: LABETALOL 20 MG/4 ML SYRINGE IV STA (23:41)
[2021-09-11] MEDS ORDERED: DEXAMETHASONE 10 MG/1 ML VIAL IV STA (23:41)
[2021-09-11] MEDS ORDERED: cefTRIAXone 1,000 MG in SODIUM CHLORIDE 0.9% 100 ML IV STA (23:41)
[2021-09-11] MEDS ORDERED: SODIUM CHLORIDE 0.9% 1,000 ML IV SCH (23:45)
[2021-09-11] MEDS ORDERED: ACETAMINOPHEN 325 MG TABLET PO PRN (23:57)
[2021-09-11] MEDS ORDERED: ONDANSETRON 4 MG/2 ML VIAL IV PRN (23:57)
[2021-09-12] MEDS: APIXABAN 2.5 MG TABLET PO SCH ×2 (00:59→23:03)
[2021-09-12] MEDS: cefTRIAXone 1,000 MG in SODIUM CHLORIDE 0.9% 100 ML IV SCH (03:31)
[2021-09-12] MEDS ORDERED: cloNIDine 0.1 MG TABLET PO ONE (04:39)
[2021-09-12 07:10] LABS: Hematocrit 39.1 VOL% (42.0-52.0); Hemoglobin 12.1 GM/DL (14.0-18.0); Immature Granulocytes % 0.5 %; Immature Granulocytes Absolute 0.02 #; Lymphocytes # 0.6 10*3/uL (1.4-4.0); Lymphocytes % 14.5 % (21.2-54.2); Mean Corpuscular HGB Conc 30.9 GM/DL (32-36); Mean Corpuscular Volume 94.2 FL (87-102); Mean Platelet Volume 11.3 FL (9.6-12.0); Monocytes % 3.7 % (1.7-12.7); Neutrophils % 81.3 % (38.7-73.9); Platelet Count 178 T/CUMM (130-400); Red Blood Count 4.15 MC/CUMM (3.8-5.5); White Blood Count 4.1 T/CUMM (4-12)
[2021-09-12 07:34] LABS: Albumin 2.6 G/DL (3.4-5.0); Bilirubin,Total 0.4 MG/DL (0.20-1.00); Calcium 9.3 MG/DL (8.5-10.1); Osmolality,Calculated 307.7 MOS/KG (273-304); Potassium 4.3 MMOL/L (3.5-5.1); Total Protein 8.1 G/DL (6.4-8.2)
[2021-09-12] MEDS ORDERED: cloNIDine 0.1 MG TABLET PO SCH (09:00)
[2021-09-12] MEDS ORDERED: APIXABAN 2.5 MG TABLET PO SCH (09:00)
[2021-09-12 09:27] LABS: Uric Acid 9.3 MG/DL (3.5-7.2)
[2021-09-12] MEDS: ASPIRIN EC 81 MG TABLET PO SCH (09:59)
[2021-09-12] MEDS: PANTOPRAZOLE 40 MG TABLET PO SCH (09:59)
[2021-09-12] MEDS: allopurinoL 100 MG TABLET PO SCH (09:59)
[2021-09-12] MEDS: FERROUS SULFATE 325 MG TABLET PO SCH (09:59)
[2021-09-12] MEDS: DOCUSATE SODIUM 100 MG CAPSULE PO SCH ×2 (09:59→20:35)
[2021-09-12] MEDS: carvediloL 25 MG TABLET PO SCH ×2 (09:59→20:35)
[2021-09-12] MEDS: TAMSULOSIN 0.4 MG CAPSULE PO SCH (09:59)
[2021-09-12] MEDS: SODIUM CHLORIDE 0.45% 1,000 ML IV SCH ×2 (11:03→17:59)
[2021-09-12] MEDS: DEXAMETHASONE INJ 10 MG in SODIUM CHLORIDE 0.9% 50 ML IV SCH (18:54)
[2021-09-12] MEDS: SIMVASTATIN 20 MG TABLET PO SCH (20:35)
[2021-09-13] MEDS: cefTRIAXone 1,000 MG in SODIUM CHLORIDE 0.9% 100 ML IV SCH (01:15)
[2021-09-13 05:59] LABS: Calcium 9.1 MG/DL (8.5-10.1); Osmolality,Calculated 299.4 MOS/KG (273-304); Potassium 4.2 MMOL/L (3.5-5.1)
[2021-09-13] MEDS: DOXAZOSIN 1 MG TABLET PO SCH ×4 (08:28→10:12)
[2021-09-13] MEDS: TAMSULOSIN 0.4 MG CAPSULE PO SCH (10:08)
[2021-09-13] MEDS: DEXAMETHASONE INJ 10 MG in SODIUM CHLORIDE 0.9% 50 ML IV SCH (10:08)
[2021-09-13] MEDS: PANTOPRAZOLE 40 MG TABLET PO SCH (10:09)
[2021-09-13] MEDS: ASPIRIN EC 81 MG TABLET PO SCH (10:09)
[2021-09-13] MEDS: FERROUS SULFATE 325 MG TABLET PO SCH (10:09)
[2021-09-13] MEDS: DOCUSATE SODIUM 100 MG CAPSULE PO SCH ×2 (10:09→22:06)
[2021-09-13] MEDS: allopurinoL 100 MG TABLET PO SCH (10:09)
[2021-09-13] MEDS: carvediloL 25 MG TABLET PO SCH ×2 (10:09→22:06)
[2021-09-13] MEDS: SODIUM CHLORIDE 0.45% 1,000 ML IV SCH ×2 (18:28→18:29)
[2021-09-13] MEDS: SIMVASTATIN 20 MG TABLET PO SCH (22:06)
[2021-09-13] MEDS: APIXABAN 2.5 MG TABLET PO SCH (22:45)
[2021-09-14] MEDS: cefTRIAXone 1,000 MG in SODIUM CHLORIDE 0.9% 100 ML IV SCH (05:00)
[2021-09-14 05:44] LABS: Hematocrit 36.7 VOL% (42.0-52.0); Hemoglobin 11.6 GM/DL (14.0-18.0); Immature Granulocytes % 0.6 %; Immature Granulocytes Absolute 0.02 #; Lymphocytes # 0.7 10*3/uL (1.4-4.0); Lymphocytes % 22.2 % (21.2-54.2); Mean Corpuscular HGB Conc 31.6 GM/DL (32-36); Mean Corpuscular Volume 93.4 FL (87-102); Mean Platelet Volume 11.5 FL (9.6-12.0); Monocytes % 5.2 % (1.7-12.7); Platelet Count 214 T/CUMM (130-400); Red Blood Count 3.93 MC/CUMM (3.8-5.5); Red Cell Distribution Width 13.9 % (9.3-17.3); White Blood Count 3.2 T/CUMM (4-12)
[2021-09-14 06:45] LABS: Albumin 2.5 G/DL (3.4-5.0); Bilirubin,Total 0.9 MG/DL (0.20-1.00); Calcium 9.2 MG/DL (8.5-10.1); Osmolality,Calculated 297.5 MOS/KG (273-304); Potassium 4.1 MMOL/L (3.5-5.1); Total Protein 7.6 G/DL (6.4-8.2)
[2021-09-14] MEDS: FERROUS SULFATE 325 MG TABLET PO SCH (08:37)
[2021-09-14] MEDS: ASPIRIN EC 81 MG TABLET PO SCH (08:38)
[2021-09-14] MEDS: allopurinoL 100 MG TABLET PO SCH (08:38)
[2021-09-14] MEDS: DOCUSATE SODIUM 100 MG CAPSULE PO SCH ×2 (08:38→23:25)
[2021-09-14] MEDS: DOXAZOSIN 1 MG TABLET PO SCH ×2 (08:38→10:05)
[2021-09-14] MEDS: TAMSULOSIN 0.4 MG CAPSULE PO SCH (08:38)
[2021-09-14] MEDS: carvediloL 25 MG TABLET PO SCH ×2 (08:38→23:25)
[2021-09-14] MEDS: PANTOPRAZOLE 40 MG TABLET PO SCH (08:38)
[2021-09-14] MEDS: DEXAMETHASONE INJ 10 MG in SODIUM CHLORIDE 0.9% 50 ML IV SCH (08:40)
[2021-09-14] MEDS: SIMVASTATIN 20 MG TABLET PO SCH (23:25)
[2021-09-14] MEDS: APIXABAN 2.5 MG TABLET PO SCH (23:25)
[2021-09-15] MEDS: cefTRIAXone 1,000 MG in SODIUM CHLORIDE 0.9% 100 ML IV SCH (03:53)
[2021-09-15] MEDS: SODIUM CHLORIDE 0.45% 1,000 ML IV SCH ×4 (04:00→20:19)
[2021-09-15 06:26] LABS: Hematocrit 39.1 VOL% (42.0-52.0); Hemoglobin 12.6 GM/DL (14.0-18.0); Immature Granulocytes % 0.8 %; Immature Granulocytes Absolute 0.02 #; Lymphocytes # 0.5 10*3/uL (1.4-4.0); Lymphocytes % 20.3 % (21.2-54.2); Mean Corpuscular HGB Conc 32.2 GM/DL (32-36); Mean Corpuscular Volume 90.1 FL (87-102); Monocytes % 5.6 % (1.7-12.7); Neutrophils % 73.3 % (38.7-73.9); Platelet Count 162 T/CUMM (130-400); Red Blood Count 4.34 MC/CUMM (3.8-5.5); Red Cell Distribution Width 13.5 % (9.3-17.3); White Blood Count 2.7 T/CUMM (4-12)
[2021-09-15] MEDS: FERROUS SULFATE 325 MG TABLET PO SCH (09:09)
[2021-09-15] MEDS: DOXAZOSIN 1 MG TABLET PO SCH (09:10)
[2021-09-15] MEDS: ASPIRIN EC 81 MG TABLET PO SCH (09:10)
[2021-09-15] MEDS: allopurinoL 100 MG TABLET PO SCH (09:10)
[2021-09-15] MEDS: PANTOPRAZOLE 40 MG TABLET PO SCH (09:10)
[2021-09-15] MEDS: DOCUSATE SODIUM 100 MG CAPSULE PO SCH ×2 (09:10→20:22)
[2021-09-15] MEDS: DEXAMETHASONE INJ 10 MG in SODIUM CHLORIDE 0.9% 50 ML IV SCH (09:11)
[2021-09-15] MEDS: TAMSULOSIN 0.4 MG CAPSULE PO SCH (09:30)
[2021-09-15] MEDS: carvediloL 25 MG TABLET PO SCH ×2 (09:30→20:22)
[2021-09-15 11:17] LABS: Calcium 9.3 MG/DL (8.5-10.1); Osmolality,Calculated 295.7 MOS/KG (273-304); Potassium 4.9 MMOL/L (3.5-5.1); Risk Ratio 3.09; VLDL Cholesterol 39.2 MG/DL
[2021-09-15] MEDS: SIMVASTATIN 20 MG TABLET PO SCH (20:22)
[2021-09-15] MEDS: APIXABAN 2.5 MG TABLET PO SCH (22:44)
[2021-09-16 05:39] LABS: Basophils % 0.3 % (0.0-0.8); Hematocrit 35.8 VOL% (42.0-52.0); Hemoglobin 11.5 GM/DL (14.0-18.0); Immature Granulocytes Absolute 0.04 #; Lymphocytes # 0.8 10*3/uL (1.4-4.0); Lymphocytes % 19.1 % (21.2-54.2); Mean Corpuscular HGB Conc 32.1 GM/DL (32-36); Mean Corpuscular Volume 91.1 FL (87-102); Mean Platelet Volume 11.7 FL (9.6-12.0); Monocytes % 8.1 % (1.7-12.7); Neutrophils % 71.5 % (38.7-73.9); Platelet Count 183 T/CUMM (130-400); Red Blood Count 3.93 MC/CUMM (3.8-5.5); Red Cell Distribution Width 13.3 % (9.3-17.3); White Blood Count 3.9 T/CUMM (4-12)
[2021-09-16 06:12] LABS: Calcium 9.1 MG/DL (8.5-10.1); Osmolality,Calculated 293.7 MOS/KG (273-304); Potassium 3.8 MMOL/L (3.5-5.1)
[2021-09-16] MEDS: carvediloL 25 MG TABLET PO SCH ×2 (09:29→20:34)
[2021-09-16] MEDS: DOXAZOSIN 1 MG TABLET PO SCH (09:29)
[2021-09-16] MEDS: DOCUSATE SODIUM 100 MG CAPSULE PO SCH ×2 (09:29→20:34)
[2021-09-16] MEDS: PANTOPRAZOLE 40 MG TABLET PO SCH (09:29)
[2021-09-16] MEDS: FERROUS SULFATE 325 MG TABLET PO SCH (09:29)
[2021-09-16] MEDS: ASPIRIN EC 81 MG TABLET PO SCH (09:30)
[2021-09-16] MEDS: allopurinoL 100 MG TABLET PO SCH (09:30)
[2021-09-16] MEDS: TAMSULOSIN 0.4 MG CAPSULE PO SCH (09:30)
[2021-09-16] MEDS: DEXAMETHASONE INJ 10 MG in SODIUM CHLORIDE 0.9% 50 ML IV SCH (10:12)
[2021-09-16] MEDS: SODIUM CHLORIDE 0.45% 1,000 ML IV SCH ×2 (10:49→20:34)
[2021-09-16] MEDS ORDERED: POLYETHYLENE GLYCOL POWDER 17 GM PACK PO PRN (15:37)
[2021-09-16] MEDS: DOXAZOSIN 4 MG TABLET PO SCH (16:20)
[2021-09-16] MEDS ORDERED: TUBERCULIN SKIN TEST 0.1 ML SYRINGE INTRADERM ONE (17:26)
[2021-09-16] MEDS: SIMVASTATIN 20 MG TABLET PO SCH (20:34)
[2021-09-16] MEDS: APIXABAN 2.5 MG TABLET PO SCH (22:45)
[2021-09-17 06:05] LABS: Eosinophils % 0.2 % (0.00-10.9); Hematocrit 34.4 VOL% (42.0-52.0); Hemoglobin 11.2 GM/DL (14.0-18.0); Immature Granulocytes % 1.5 %; Immature Granulocytes Absolute 0.06 #; Lymphocytes # 0.7 10*3/uL (1.4-4.0); Lymphocytes % 17.6 % (21.2-54.2); Mean Corpuscular HGB Conc 32.6 GM/DL (32-36); Mean Corpuscular Volume 90.5 FL (87-102); Mean Platelet Volume 11.8 FL (9.6-12.0); Monocytes % 6.8 % (1.7-12.7); Neutrophils % 73.9 % (38.7-73.9); Platelet Count 195 T/CUMM (130-400); Red Cell Distribution Width 13.2 % (9.3-17.3); White Blood Count 4.1 T/CUMM (4-12)
[2021-09-17 06:12] LABS: Calcium 8.8 MG/DL (8.5-10.1); Osmolality,Calculated 296.4 MOS/KG (273-304); Potassium 3.7 MMOL/L (3.5-5.1)
[2021-09-17] MEDS: DOXAZOSIN 4 MG TABLET PO SCH (08:28)
[2021-09-17] MEDS: FERROUS SULFATE 325 MG TABLET PO SCH (08:28)
[2021-09-17] MEDS: DOCUSATE SODIUM 100 MG CAPSULE PO SCH (08:28)
[2021-09-17] MEDS: allopurinoL 100 MG TABLET PO SCH (08:28)
[2021-09-17] MEDS: carvediloL 25 MG TABLET PO SCH (08:28)
[2021-09-17] MEDS: PANTOPRAZOLE 40 MG TABLET PO SCH (08:28)
[2021-09-17] MEDS: ASPIRIN EC 81 MG TABLET PO SCH (08:28)
[2021-09-17] MEDS: TAMSULOSIN 0.4 MG CAPSULE PO SCH (08:28)
[2021-09-17] MEDS ORDERED: DEXAMETHASONE INJ 6 MG in SODIUM CHLORIDE 0.9% 50 ML IV SCH (09:00)
[2021-09-17] MEDS ORDERED: DEXAMETHASONE 4 MG/1 ML VIAL IV SCH (09:00)
[2021-09-17] MEDS ORDERED: POLYETHYLENE GLYCOL POWDER 17 GM PACK PO SCH (09:00)
[2021-09-17] MEDS: SODIUM CHLORIDE 0.45% 1,000 ML IV SCH (11:59)
[2021-09-17] MEDS ORDERED: TUBERCULIN SKIN TEST 0.1 ML SYRINGE INTRADERM ONE (14:33)
[2021-09-17 16:36] VITALS: BP 116/75
== END 2021-09-17 18:10 | disposition swing bed (61) | DRG 178 ==
LOC: EDBD → EDUNIT# → N.ED 19:35 → N.EDINP 23:56 → N.TELEN 09-12 03:33
PROVIDERS: ADMIT Internal Medicine; ATTEND Internal Medicine

== ENCOUNTER 2021-11-22 15:49 | Inpatient (IN) ==
[2021-11-22 16:27] LABS: Basophils # 0.1 10*3/uL (0.0-0.2); Basophils % 1.5 % (0.0-0.8); Eosinophils # 0.2 10*3/uL (0.0-0.87); Eosinophils % 3.5 % (0.00-10.9); Hematocrit 33.6 VOL% (42.0-52.0); Hemoglobin 10.8 GM/DL (14.0-18.0); Immature Granulocytes % 0.4 %; Immature Granulocytes Absolute 0.02 #; Lymphocytes # 1.1 10*3/uL (1.4-4.0); Mean Corpuscular HGB Conc 32.1 GM/DL (32-36); Mean Corpuscular Volume 95.5 FL (87-102); Mean Platelet Volume 10.1 FL (9.6-12.0); Monocytes # 0.4 10*3/uL (0.11-0.8); Monocytes % 8.9 % (1.7-12.7); Neutrophils % 63.7 % (38.7-73.9); Platelet Count 202 T/CUMM (130-400); Red Blood Count 3.52 MC/CUMM (3.8-5.5); Red Cell Distribution Width 16.6 % (9.3-17.3); White Blood Count 4.8 T/CUMM (4-12)
[2021-11-22] MEDS ORDERED: FUROSEMIDE 40 MG/4 ML VIAL IV STA (16:59)
[2021-11-22 17:38] LABS: Albumin 3.1 G/DL (3.4-5.0); Bilirubin,Total 0.4 MG/DL (0.20-1.00); Calcium 9.2 MG/DL (8.5-10.1); Osmolality,Calculated 291.7 MOS/KG (273-304); Potassium 3.8 MMOL/L (3.5-5.1)
[2021-11-22] MEDS ORDERED: GLUCAGON 1 MG VIAL IM PRN (20:49)
[2021-11-22] MEDS ORDERED: DEXTROSE 10% 250 ML BAG IV PRN (20:49)
[2021-11-22] MEDS ORDERED: ONDANSETRON 4 MG/2 ML VIAL IV PRN (20:49)
[2021-11-22] MEDS ORDERED: ACETAMINOPHEN 325 MG TABLET PO PRN (20:49)
[2021-11-22] MEDS ORDERED: DOCUSATE SODIUM 100 MG CAPSULE PO SCH (21:00)
[2021-11-22] MEDS: FUROSEMIDE 40 MG/4 ML VIAL IV SCH (22:31)
[2021-11-22] MEDS ORDERED: POLYETHYLENE GLYCOL POWDER 17 GM PACK PO PRN (22:44)
[2021-11-22] MEDS: INSULIN REGULAR 100 UNIT/ML SUBCUT SCH (22:45)
[2021-11-23 04:43] LABS: Basophils # 0.1 10*3/uL (0.0-0.2); Basophils % 1.1 % (0.0-0.8); Eosinophils # 0.2 10*3/uL (0.0-0.87); Eosinophils % 4.1 % (0.00-10.9); Hematocrit 31.6 VOL% (42.0-52.0); Hemoglobin 9.9 GM/DL (14.0-18.0); Immature Granulocytes % 0.4 %; Immature Granulocytes Absolute 0.02 #; Lymphocytes # 1.2 10*3/uL (1.4-4.0); Lymphocytes % 20.9 % (21.2-54.2); Mean Corpuscular HGB Conc 31.3 GM/DL (32-36); Mean Corpuscular Volume 95.8 FL (87-102); Mean Platelet Volume 10.4 FL (9.6-12.0); Monocytes # 0.5 10*3/uL (0.11-0.8); Monocytes % 8.5 % (1.7-12.7); Platelet Count 218 T/CUMM (130-400); Red Cell Distribution Width 16.2 % (9.3-17.3); White Blood Count 5.6 T/CUMM (4-12)
[2021-11-23 05:12] LABS: Albumin 3.1 G/DL (3.4-5.0); Bilirubin,Total 0.4 MG/DL (0.20-1.00); Calcium 9.5 MG/DL (8.5-10.1); Phosphorous 2.6 MG/DL (2.5-4.9); Total Protein 7.2 G/DL (6.4-8.2); Uric Acid 5.8 MG/DL (3.5-7.2)
[2021-11-23] MEDS: FUROSEMIDE 40 MG/4 ML VIAL IV SCH ×3 (05:37→21:54)
[2021-11-23] MEDS: DOXAZOSIN 4 MG TABLET PO SCH (09:22)
[2021-11-23] MEDS: carvediloL 25 MG TABLET PO SCH ×3 (09:22→21:54)
[2021-11-23] MEDS: PARoxetine 20 MG TABLET PO SCH (09:22)
[2021-11-23] MEDS: PANTOPRAZOLE 40 MG TABLET PO SCH (09:22)
[2021-11-23] MEDS: FERROUS SULFATE 325 MG TABLET PO SCH (09:22)
[2021-11-23] MEDS: allopurinoL 100 MG TABLET PO SCH (09:22)
[2021-11-23] MEDS: TAMSULOSIN 0.4 MG CAPSULE PO SCH (09:23)
[2021-11-23] MEDS: ASPIRIN EC 81 MG TABLET PO SCH (09:23)
[2021-11-23] MEDS: APIXABAN 2.5 MG TABLET PO SCH ×3 (09:23→21:55)
[2021-11-23] MEDS: DOCUSATE SODIUM 100 MG CAPSULE PO SCH ×2 (09:23→21:55)
[2021-11-23] MEDS: ISOSORBIDE MONONITRATE 30 MG TABLET PO SCH (09:23)
[2021-11-23] MEDS: POLYETHYLENE GLYCOL POWDER 17 GM PACK PO SCH (09:24)
[2021-11-23] MEDS: prednisoLONE ACETATE 1% OPH SUSP 5 ML BOTTLE RIGHT EYE SCH ×2 (09:24→21:54)
[2021-11-23] MEDS: INSULIN REGULAR 100 UNIT/ML SUBCUT SCH ×4 (09:29→23:29)
[2021-11-23] MEDS: busPIRone 5 MG TABLET PO SCH (21:54)
[2021-11-23] MEDS: SIMVASTATIN 20 MG TABLET PO SCH (22:02)
[2021-11-24 05:26] LABS: Basophils # 0.1 10*3/uL (0.0-0.2); Basophils % 1.1 % (0.0-0.8); Eosinophils # 0.2 10*3/uL (0.0-0.87); Eosinophils % 3.6 % (0.00-10.9); Hematocrit 29.3 VOL% (42.0-52.0); Hemoglobin 9.4 GM/DL (14.0-18.0); Immature Granulocytes % 0.4 %; Immature Granulocytes Absolute 0.02 #; Lymphocytes # 1.3 10*3/uL (1.4-4.0); Lymphocytes % 22.4 % (21.2-54.2); Mean Corpuscular HGB Conc 32.1 GM/DL (32-36); Mean Corpuscular Volume 95.4 FL (87-102); Mean Platelet Volume 10.5 FL (9.6-12.0); Monocytes # 0.6 10*3/uL (0.11-0.8); Monocytes % 9.8 % (1.7-12.7); Neutrophils % 62.7 % (38.7-73.9); Platelet Count 198 T/CUMM (130-400); Red Blood Count 3.07 MC/CUMM (3.8-5.5); Red Cell Distribution Width 16.1 % (9.3-17.3); White Blood Count 5.6 T/CUMM (4-12)
[2021-11-24 05:45] LABS: Calcium 9.4 MG/DL (8.5-10.1); Osmolality,Calculated 295.8 MOS/KG (273-304); Phosphorous 2.7 MG/DL (2.5-4.9); Potassium 3.8 MMOL/L (3.5-5.1)
[2021-11-24] MEDS: FUROSEMIDE 40 MG/4 ML VIAL IV SCH ×2 (06:01→14:49)
[2021-11-24] MEDS: POLYETHYLENE GLYCOL POWDER 17 GM PACK PO SCH (09:48)
[2021-11-24] MEDS: ASPIRIN EC 81 MG TABLET PO SCH (09:48)
[2021-11-24] MEDS: INSULIN REGULAR 100 UNIT/ML SUBCUT SCH ×4 (09:48→21:11)
[2021-11-24] MEDS: PARoxetine 20 MG TABLET PO SCH (09:49)
[2021-11-24] MEDS: FERROUS SULFATE 325 MG TABLET PO SCH (09:49)
[2021-11-24] MEDS: carvediloL 25 MG TABLET PO SCH ×2 (09:49→21:11)
[2021-11-24] MEDS: TAMSULOSIN 0.4 MG CAPSULE PO SCH (09:49)
[2021-11-24] MEDS: busPIRone 5 MG TABLET PO SCH ×2 (09:49→21:11)
[2021-11-24] MEDS: ISOSORBIDE MONONITRATE 30 MG TABLET PO SCH (09:49)
[2021-11-24] MEDS: PANTOPRAZOLE 40 MG TABLET PO SCH (09:49)
[2021-11-24] MEDS: APIXABAN 2.5 MG TABLET PO SCH ×2 (09:49→21:11)
[2021-11-24] MEDS: DOCUSATE SODIUM 100 MG CAPSULE PO SCH ×2 (09:49→21:11)
[2021-11-24] MEDS: allopurinoL 100 MG TABLET PO SCH (09:49)
[2021-11-24] MEDS: DOXAZOSIN 4 MG TABLET PO SCH (09:49)
[2021-11-24] MEDS: prednisoLONE ACETATE 1% OPH SUSP 5 ML BOTTLE RIGHT EYE SCH ×2 (09:50→22:49)
[2021-11-24] MEDS: SIMVASTATIN 20 MG TABLET PO SCH (21:11)
[2021-11-25 06:43] LABS: Calcium 9.3 MG/DL (8.5-10.1); Potassium 3.7 MMOL/L (3.5-5.1)
[2021-11-25] MEDS: INSULIN REGULAR 100 UNIT/ML SUBCUT SCH ×2 (08:17→13:05)
[2021-11-25] MEDS ORDERED: FUROSEMIDE 40 MG TABLET PO SCH (09:00)
[2021-11-25] MEDS: ISOSORBIDE MONONITRATE 30 MG TABLET PO SCH (09:44)
[2021-11-25] MEDS: APIXABAN 2.5 MG TABLET PO SCH (09:44)
[2021-11-25] MEDS: POLYETHYLENE GLYCOL POWDER 17 GM PACK PO SCH (09:44)
[2021-11-25] MEDS: ASPIRIN EC 81 MG TABLET PO SCH (09:44)
[2021-11-25] MEDS: busPIRone 5 MG TABLET PO SCH (09:44)
[2021-11-25] MEDS: carvediloL 25 MG TABLET PO SCH (09:44)
[2021-11-25] MEDS: PANTOPRAZOLE 40 MG TABLET PO SCH (09:44)
[2021-11-25] MEDS: allopurinoL 100 MG TABLET PO SCH (09:44)
[2021-11-25] MEDS: DOCUSATE SODIUM 100 MG CAPSULE PO SCH (09:44)
[2021-11-25] MEDS: TAMSULOSIN 0.4 MG CAPSULE PO SCH (09:44)
[2021-11-25] MEDS: FERROUS SULFATE 325 MG TABLET PO SCH (09:45)
[2021-11-25] MEDS: PARoxetine 20 MG TABLET PO SCH (09:45)
[2021-11-25] MEDS: DOXAZOSIN 4 MG TABLET PO SCH (09:45)
[2021-11-25] MEDS: prednisoLONE ACETATE 1% OPH SUSP 5 ML BOTTLE RIGHT EYE SCH (09:52)
[2021-11-25 13:28] VITALS: BP 139/66
== END 2021-11-25 13:18 | DRG 291 ==
LOC: N.ED 15:49 → N.EDINP 15:49 → N.TELEN 19:55
PROVIDERS: ADMIT Internal Medicine; ATTEND Internal Medicine

== ENCOUNTER 2022-10-03 15:02 | Observation (INO) ==
[2022-10-03 16:14] LABS: Basophils % 0.8 % (0.0-0.8); Eosinophils % 0.3 % (0.00-10.9); Hematocrit 34.6 VOL% (42.0-52.0); Hemoglobin 10.7 GM/DL (14.0-18.0); Lymphocytes # 1.1 10*3/uL (1.4-4.0); Lymphocytes % 28.3 % (21.2-54.2); Mean Corpuscular HGB Conc 30.9 GM/DL (32-36); Mean Corpuscular Volume 97.5 FL (87-102); Mean Platelet Volume 10.8 FL (9.6-12.0); Monocytes # 0.7 10*3/uL (0.11-0.8); Monocytes % 17.8 % (1.7-12.7); Neutrophils % 52.8 % (38.7-73.9); Platelet Count 179 T/CUMM (130-400); Red Blood Count 3.55 MC/CUMM (3.8-5.5); Red Cell Distribution Width 14.5 % (9.3-17.3); White Blood Count 3.81 T/CUMM (4-12)
[2022-10-03 16:35] LABS: Band Neutrophils 2 % (0-10); Lymphocytes 27 % (20-55); Platelet Estimate Adequate; Total Cells Counted 100
[2022-10-03 16:37] LABS: Albumin 3.5 G/DL (3.4-5.0); Bilirubin,Total 0.5 MG/DL (0.20-1.00); Calcium 9.6 MG/DL (8.5-10.1); Osmolality,Calculated 311.1 MOS/KG (273-304); Potassium 4.1 MMOL/L (3.5-5.1); Total Protein 7.6 G/DL (6.4-8.2)
[2022-10-03] MEDS ORDERED: ONDANSETRON 4 MG/2 ML VIAL IV PRN (17:53)
[2022-10-03] MEDS ORDERED: ACETAMINOPHEN 325 MG TABLET PO PRN (17:53)
[2022-10-03] MEDS ORDERED: SODIUM CHLORIDE 0.45% 1,000 ML IV SCH (18:00)
[2022-10-03] MEDS ORDERED: ENOXAPARIN 30 MG/0.3 ML SYRINGE SUBCUT SCH (18:00)
[2022-10-03 18:08] LABS: Bilirubin,Urine Negative (Negative); Blood, Urine Trace mg/dL (Negative); Glucose,Urine (UA) Negative (Negative); Ketones,Urine Negative (Negative); Nitrite,Urine Negative (Negative); Protein,Urine >=300 mg/dL (Negative); Urine Appearance Clear (Clear); Urine Color Yellow (Yellow); Urine Specific Gravity 1.025 (1.001-1.035); Urine Urobilinogen 0.2 eU/dL (<2.0); Urine pH 5.5 (4.5-8.0)
[2022-10-03 18:10] LABS: Bacteria,Urine Occasional /HPF (Few); Hyaline Casts,Urine 1 /LPF (0-3); Mucus,Urine Occasional /LPF (Occasional); Squamous Epithelial Cell,Urine Occasional /HPF (0-10)
[2022-10-03] MEDS ORDERED: AZITHROMYCIN 250 MG TABLET PO ONE (18:41)
[2022-10-03] MEDS: ALBUTEROL/IPRATROPIUM 3 ML NEB RESP TX SCH ×2 (19:07→22:56)
[2022-10-03] MEDS: INSULIN REGULAR 100 UNIT/ML SUBCUT SCH (22:13)
[2022-10-04] MEDS ORDERED: hydrALAZINE 20 MG/1 ML VIAL IV PRN (00:56)
[2022-10-04] MEDS: ALBUTEROL/IPRATROPIUM 3 ML NEB RESP TX SCH ×3 (03:39→11:00)
[2022-10-04 05:46] LABS: Basophils % 0.9 % (0.0-0.8); Eosinophils % 0.6 % (0.00-10.9); Hematocrit 33.5 VOL% (42.0-52.0); Hemoglobin 10.7 GM/DL (14.0-18.0); Immature Granulocytes % 0.3 %; Immature Granulocytes Absolute 0.01 #; Lymphocytes # 1.2 10*3/uL (1.4-4.0); Lymphocytes % 35.6 % (21.2-54.2); Mean Corpuscular HGB Conc 31.9 GM/DL (32-36); Mean Corpuscular Volume 94.6 FL (87-102); Mean Platelet Volume 10.7 FL (9.6-12.0); Monocytes # 0.7 10*3/uL (0.11-0.8); Monocytes % 19.5 % (1.7-12.7); Neutrophils % 43.1 % (38.7-73.9); Platelet Count 172 T/CUMM (130-400); Red Blood Count 3.54 MC/CUMM (3.8-5.5); Red Cell Distribution Width 14.3 % (9.3-17.3); White Blood Count 3.43 T/CUMM (4-12)
[2022-10-04 06:08] LABS: Eosinophils 2 % (0-10); Hypochromia Slight; Lymphocytes 33 % (20-55); Platelet Estimate Adequate; Total Cells Counted 100
[2022-10-04 06:11] LABS: Albumin 3.2 G/DL (3.4-5.0); Bilirubin,Total 0.4 MG/DL (0.20-1.00); Calcium 9.8 MG/DL (8.5-10.1); Osmolality,Calculated 297.3 MOS/KG (273-304); Potassium 3.8 MMOL/L (3.5-5.1); Total Protein 7.6 G/DL (6.4-8.2)
[2022-10-04] MEDS: INSULIN REGULAR 100 UNIT/ML SUBCUT SCH ×2 (08:45→13:43)
[2022-10-04] MEDS ORDERED: ASPIRIN EC 81 MG TABLET PO SCH (09:00)
[2022-10-04] MEDS ORDERED: APIXABAN 2.5 MG TABLET PO SCH (09:00)
[2022-10-04] MEDS ORDERED: AZITHROMYCIN 250 MG TABLET PO SCH (09:00)
[2022-10-04] MEDS ORDERED: ISOSORBIDE MONONITRATE 30 MG TABLET PO SCH (09:00)
[2022-10-04] MEDS ORDERED: carvediloL 25 MG TABLET PO SCH (09:00)
[2022-10-04] MEDS ORDERED: PANTOPRAZOLE 40 MG TABLET PO SCH (09:00)
[2022-10-04 12:13] VITALS: BP 91/58
== END 2022-10-04 13:50 | disposition home health service (06) ==
LOC: EDUNIT# → EDBD → N.2E 15:02 → N.ED 15:02 → SUATTDRO 17:53 → N.2E 21:43
PROVIDERS: ADMIT Internal Medicine; ATTEND Internal Medicine